=== PATIENT | male | born 1945 | race Caucasian/White ===

== ENCOUNTER → 2018-05-11 | Day surgery (SDC) | payer MEDICARE ==
[~2018-05-11] MED LIST: AMLO5TAB10 PO; ASPI-630 PO; ATEN50TA PO; IV RINGERS,LACTATED 1000ML 1,000 ML IV SCH; MAGN400T22 PO; PANT20TA2 PO; PROPOFOL 40 ML IV ONE; SIMV80TA17 PO; TAMS0.4C2 PO; VANC500V PO
[2018-05-11 07:46] VITALS: BP 135/65
--- NOTE | 2018-05-12 04:51 | HP ---
ADMIT DATE: 05/11/2018 REASON: Rectal bleeding and diarrhea. HISTORY OF PRESENT ILLNESS: A 73-year-old male with past medical history significant for hypertension, hyperlipidemia, history of colonic polyps, anemia, BPH, is seen with diarrhea and bleeding. He has undergone upper endoscopy, which revealed some nonerosive gastritis and is here today for colonoscopy. He had been well maintained on pantoprazole 40 mg daily. Weight and appetite otherwise have been stable. PAST MEDICAL HISTORY: Hypertension, hyperlipidemia, colonic polyps, anemia. ALLERGIES: None. MEDICATIONS: Include atenolol, pantoprazole, simvastatin, and tamsulosin. FAMILY AND SOCIAL HISTORY: Noncontributory. REVIEW OF SYSTEMS: Per records. PHYSICAL EXAMINATION: GENERAL: Reveals a well-nourished, well-developed male who is alert and cooperative, no acute distress. VITAL SIGNS: Temperature 97.3, pulse 51, respiratory rate is 18. HEENT: Normocephalic and atraumatic head. Pupils and extraocular muscles are not tested. Sclerae anicteric. NECK: Supple. LUNGS: Clear. CARDIOVASCULAR: Reveals an S1, S2 without S3, S4 or appreciable murmur. ABDOMEN: Soft abdomen, normal bowel sounds. No appreciable splenomegaly. EXTREMITIES: No cyanosis, clubbing or edema. LABORATORY STUDIES: At the time of admission did include hemoglobin of 11.4. IMPRESSION: Anemia with diarrhea and rectal bleeding, etiology to be determined, history of colonic polyps. Interval exam was recommended. Risks and benefits were previously discussed. The patient is willing to proceed. JOHNNIE CHAWLA MD DR: ALYX/lc JOB#: [id number] / [id number]
== END | disposition home or self-care (01) ==
LOC: ENDOS 06:10
PROVIDERS: ATTEND Internal Medicine Gastroenterology
DX: K57.30 Diverticulosis of large intestine without perforation or abscess without bleeding (principal); K64.0 First degree hemorrhoids; I10 Essential (primary) hypertension; E78.5 Hyperlipidemia, unspecified; Z86.010 Personal history of colon polyps; Z79.899 Other long term (current) drug therapy; N40.0 Benign prostatic hyperplasia without lower urinary tract symptoms; D50.0 Iron deficiency anemia secondary to blood loss (chronic)
CPT/HCPCS: 45378; J2704

== ENCOUNTER → 2019-05-31 | Outpatient (CLI) | payer MEDICARE ==
[2019-05-22 15:00] VITALS: BP 153/75
[~2019-05-31] MED LIST changes: +GADOTERATE 5 MMOL/10ML VIAL. IVP ONE; -IV RINGERS,LACTATED 1000ML 1,000 ML IV SCH; +MAGN400T44 PO; +POTA20TA4 PO; -PROPOFOL 40 ML IV ONE; +SUCR1TAB35 PO
--- NOTE | 2019-05-31 09:14 | KCIC ---
EYE FOR FOREIGN BODY History: Screening protocol for MRI. Evaluate for metallic foreign body. Technique: 2 views of the orbits. Comparison: None. Findings: No radiopaque foreign body. Normal alignment. Impression: 1. No radiopaque foreign body. Electronically signed by: Storm Freedman DO (05/31/2019 9:11 AM) [id number]
--- NOTE | 2019-05-31 10:59 | KCIC ---
EXAM: MRI Abdomen with and without IV contrast INDICATION: Follow-up liver lesion seen on CT. Patient is being evaluated for bloody stools.. TECHNIQUE: Multiplanar, multisequence MRI of the abdomen with and without IV contrast. This includes in and opposed phase imaging, diffusion-weighted imaging and dynamic postcontrast fat saturated T1-weighted imaging using 20 mL of Dotarem IV contrast. IV CONTRAST: Administered. COMPARISON: Contrast-enhanced abdomen pelvis CT 05/21/2019 FINDINGS: LIVER: Marked signal loss diffusely in the liver is consistent with severe diffuse hepatic steatosis. The 2 lesions identified on recent abdominal CT measuring 2.5 cm in the right hepatic lobe and 1.4 cm and the left hepatic lobes show marked T2 bright signal intensity and demonstrate a nodular, peripheral pattern of progressive enhancement with central pedal fill-in on delayed postcontrast phases. A third lesion measuring 1.4 cm slightly medial to the middle hepatic vein in hepatic segment IVb displays similar imaging characteristics. In addition, there are several (6) benign subcentimeter cysts in the liver in both the left and right hepatic lobes, better demonstrated on fluid sensitive T2-weighted sequences on MRI than on the prior CT scan. There is no restricted diffusion.. BILIARY SYSTEM: Gallbladder is unremarkable. Bile ducts are not dilated. PANCREAS: Unremarkable. SPLEEN: Unremarkable. ADRENALS: Unremarkable. KIDNEYS: Superior pole left renal 2.9 cm cyst requires no additional imaging follow-up. Kidneys otherwise are unremarkable. GASTROINTESTINAL: Third portion duodenal diverticulum. No evidence of bowel obstruction, acute inflammation or perforation in the included field of view. MESENTERY/PERITONEUM/RETROPERITONEUM: Unremarkable. VASCULAR: Mild focal ectasia of the celiac axis to 1 cm in diameter is present just beyond its course beneath the diaphragmatic wendi. LYMPH NODES: No adenopathy. OSSEOUS & SOFT TISSUES: A large hiatal hernia remains present containing the majority of the stomach. IMPRESSION: 1. Previously identified hepatic lesions show imaging characteristics typical of benign hepatic hemangiomas. There is a third similar lesion adjacent to the middle hepatic vein in hepatic segment IVb measuring 1.4 cm. No findings suspicious for malignancy on this examination. 2. Severe diffuse hepatic steatosis. 3. Mild ectasia of the celiac axis just beneath the diaphragmatic wendi could reflect median arcuate ligament compression in the appropriate clinical context. Electronically signed by: Red Gudino MD (05/31/2019 10:56 AM) [id number]
== END | disposition home or self-care (01) ==
LOC: KCIC MRI 08:50
PROVIDERS: ATTEND Internal Medicine Gastroenterology
DX: Z01.00 Encounter for examination of eyes and vision without abnormal findings (principal); K76.89 Other specified diseases of liver; K76.0 Fatty (change of) liver, not elsewhere classified; K44.9 Diaphragmatic hernia without obstruction or gangrene; K57.10 Diverticulosis of small intestine without perforation or abscess without bleeding
CPT/HCPCS: 70030; 74183; A9575

== ENCOUNTER 2020-06-09 23:36 | Emergency (ER) | payer MEDICARE ==
[~2020-06-09] VITALS: Ht 177.8 cm; Wt 94.0 kg
[~2020-06-09 23:36] MED LIST changes: +AMLO-186 PO; -AMLO5TAB10 PO; -GADOTERATE 5 MMOL/10ML VIAL. IVP ONE
[2020-06-09 23:38] VITALS: BP 189/91
--- NOTE | 2020-06-10 00:01 | PHYS DOC ---
Past Medical History Past Medical History: GERD, High Cholesterol, Hypertension, Other Additional Past Medical Histor: BPH Past Surgical History: Other Additional Past Surgical Histo: polyps removed, cardiac cath- clean, Smoking Status: Never Smoker Alcohol Use: None Drug Use: None General Adult EDM: Chief Complaint: URINARY RETENTION HPI: HPI: Patient is a 75 year old [f__sex] who presents with [] Urinary retention today after radiation from bladder cancer sees [facility] of [place] next scheduled session is tomorrow Review of Systems: Review of Systems: Fourteen body systems of review of systems have been reviewed. See HPI for pertinent positives and negative responses, other abdi all other systems are negative, non-pertinent or non-contributory Heart Score: Risk Factors: Risk Factors: DM, Current or recent (<one month) smoker, HTN, HLP, family history of CAD, obesity. Risk Scores: Score 0 - 3: 2.5% MACE over next 6 weeks - Discharge Home Score 4 - 6: 20.3% MACE over next 6 weeks - Admit for Clinical Observation Score 7 - 10: 72.7% MACE over next 6 weeks - Early Invasive Strategies Current Medications: Current Medications Medications (Trade) Dose Ordered Sig/Nicole Start Time Stop Time Status Last Admin Dose Admin Acetaminophen/ Hydrocodone Bitart (Lortab 5/325) 1 tab 1X ONCE 06/10/20 00:00 06/10/20 00:01 UNV Allergies: Allergies: Allergies Coded Allergies Type Severity Reaction Last Updated Verified No Known Drug Allergies 05/11/18 No Physical Exam: PE: Constitutional: Well developed, well nourished, no acute distress, non-toxic appearance. HENT: Normocephalic, atraumatic, bilateral external ears normal, oropharynx moist, no oral exudates, nose normal. Eyes: PERRLA, EOMI, conjunctiva normal, no discharge. Neck: Normal range of motion, no tenderness, supple, no stridor. Cardiovascular: Heart rate regular, sinus rhythm, no murmurs rubs or gallops Lungs & Thorax: Bilateral breath sounds clear to auscultation Abdomen: Bowel sounds normal, soft, no tenderness, no masses, no pulsatile masses. Nonsurgical abdomen, no peritoneal signs Skin: Warm, dry, no erythema, no rash. Back: No tenderness, no CVA tenderness. Extremities: No tenderness, no cyanosis, no clubbing, ROM intact, no edema. Neurologic: Alert and oriented X 3, grossly normal motor & sensory function, no focal deficits noted. Psychologic: Affect normal, judgement normal, mood normal. EKG: EKG: [] Radiology/Procedures: Radiology/Procedures: [] Course & Med Decision Making: Course & Med Decision Making Pertinent Labs and Imaging studies reviewed. (See chart for details) [] Dragon Disclaimer: Dragon Disclaimer: This electronic medical record was generated, in whole or in part, using a voice recognition dictation system. Departure Departure Impression: Primary Impression: Acute urinary retention Additional Impression: History of prostate cancer Disposition: HOME / SELF CARE / HOMELESS Condition: IMPROVED Referrals: RAFY WEBBER MD (PCP) Patient Instructions: Urinary Retention, Acute, Male Additional Instructions: As discussed, you had significant relief with Kwon catheter and subsequent drainage of bladder today while in ER. As discussed, please keep Kwon catheter in place until you are seen this upcoming morning by your urology team for previously scheduled radiation treatment. They will be able to provide further direction regarding Kwon catheter use, duration etc. If any concerning signs or symptoms present prior to outpatient follow-up please do not hesitate to come back for repeat evaluation. Take care of you and I wish you the best going forward EVELYNE FRASER DO Jun 10, 2020 00:01
[2020-06-10 00:23] LABS: CLARITY,URINE CLEAR; COLOR,URINE ORANGE
[2020-06-10] MEDS ORDERED: HYDROcodone/APAP 5/325MG 1 TAB TABLET PO ONE (00:30)
[2020-06-10] MEDS ORDERED: ACETAMINOPHEN 500 MG TABLET PO ONE (00:30)
[2020-06-10 00:32] LABS: BACTERIA,URINE 0 /HPF (0-FEW); RBC,URINE 20-40 /HPF (0-2)
== END 2020-06-10 02:40 | disposition home or self-care (01) ==
LOC: ER 23:36
DX: N40.1 Benign prostatic hyperplasia with lower urinary tract symptoms (principal); R33.8 Other retention of urine; K21.9 Gastro-esophageal reflux disease without esophagitis; E78.00 Pure hypercholesterolemia, unspecified; I10 Essential (primary) hypertension; Z85.46 Personal history of malignant neoplasm of prostate
CPT/HCPCS: 51702; 81001; 99284

== ENCOUNTER 2020-07-29 23:25 | Emergency (ER) | payer MEDICARE ==
[~2020-07-29] VITALS: Ht 170.2 cm; Wt 93.1 kg
[2020-07-29 23:30] VITALS: BP 158/112
--- NOTE | 2020-07-30 00:15 | ED.ADGEN ---
Past Medical History Past Medical History: Cancer, GERD, High Cholesterol, Hypertension, Other Additional Past Medical Histor: BPH, Prostate Cancer Past Surgical History: Other Additional Past Surgical Histo: polyps removed, cardiac cath- clean, Smoking Status: Never Smoker Alcohol Use: None Drug Use: None General Adult EDM: Chief Complaint: URINARY RETENTION HPI: HPI: Patient is a 75 year old male coming in for urinary retention and low abdominal pain. Patient states he feels like he is having bladder spasms. Patient is a history of prostate cancer status post surgery and radiation. Patient was at his urology office this morning and had Kwon removed. Was able to void about 50 mL of urine at that time. Patient states he had difficulty and been having only very small amounts of urine output and "trickling". No other complaints. Review of Systems: Review of Systems: All other systems within normal limits except for as noted in the HPI Current Medications: Current Medications Medications (Trade) Dose Ordered Sig/Nicole Start Time Stop Time Status Last Admin Dose Admin Lidocaine HCl (Glydo (Lidocaine) Jelly) 1 bony 1X ONCE 07/30/20 00:30 07/30/20 00:31 Allergies: Allergies: Allergies Coded Allergies Type Severity Reaction Last Updated Verified No Known Drug Allergies 05/11/18 No Physical Exam: PE: Constitutional: Well developed, well nourished, no acute distress, non-toxic appearance. [] HENT: Normocephalic, atraumatic, bilateral external ears normal, nose normal. [] Eyes: PERRLA, conjunctiva normal, no discharge. [] Neck: No rigidity, supple, no stridor. [] Cardiovascular: Regular rate and rhythm, brisk cap refill [] Lungs & Thorax: Non labored symmetric respirations, no tachypnea or respiratory distress [] Abdomen: Soft, nondistended low abdominal tenderness, no masses. Skin: Warm, dry, no erythema, no rash. [] Back: Unremarkable Extremities: No deformities, range of motion grossly intact, no lower extremity edema [] Neurologic: Alert and oriented X 3, no focal deficits noted. [] Psychologic: Affect normal, judgement normal, mood normal. [] EKG: EKG: [] Heart Score: C/O Chest Pain: No Risk Factors: Risk Factors: DM, Current or recent (<one month) smoker, HTN, HLP, family history of CAD, obesity. Risk Scores: Score 0 - 3: 2.5% MACE over next 6 weeks - Discharge Home Score 4 - 6: 20.3% MACE over next 6 weeks - Admit for Clinical Observation Score 7 - 10: 72.7% MACE over next 6 weeks - Early Invasive Strategies Radiology/Procedures: Radiology/Procedures: [] Course & Med Decision Making: Course & Med Decision Making Kwon placed without complication. Patient is follow-up with urologist for further evaluation of urinary tension. Dragon Disclaimer: Dragon Disclaimer: This electronic medical record was generated, in whole or in part, using a voice recognition dictation system. Departure Departure Impression: Primary Impression: Urinary retention with incomplete bladder emptying Disposition: HOME / SELF CARE / HOMELESS Condition: STABLE Referrals: RAFY WEBBER MD (PCP) Patient Instructions: Kwon Catheter Care, Adult MALCOLM WILLIAM MD Jul 30, 2020 00:15
[2020-07-30] MEDS ORDERED: LIDOCAINE 2% JELLY 6ML IN APPLICATOR. MM ONE (00:30)
== END 2020-07-30 00:51 | disposition home or self-care (01) ==
LOC: ER 23:25
DX: N40.1 Benign prostatic hyperplasia with lower urinary tract symptoms (principal); R33.8 Other retention of urine; R10.30 Lower abdominal pain, unspecified; K21.9 Gastro-esophageal reflux disease without esophagitis; E78.00 Pure hypercholesterolemia, unspecified; I10 Essential (primary) hypertension
CPT/HCPCS: 51702; 99284; A4314

== ENCOUNTER 2020-08-11 20:19 | Emergency (ER) | payer MEDICARE ==
[~2020-08-11] VITALS: Ht 170.2 cm; Wt 91.0 kg
[2020-08-11 21:00] LABS: CLARITY,URINE TURBID; COLOR,URINE ORANGE
[2020-08-11 21:05] LABS: WBC,URINE TNTC /HPF (0-4)
[2020-08-11 21:06] LABS: BACTERIA,URINE MANY /HPF (0-FEW)
[2020-08-11] MEDS ORDERED: IV NORMAL SALINE 1000ML BAG 1,000 ML IV ONE (21:15)
[2020-08-11] MEDS ORDERED: HYDROcodone/APAP 5/325MG 1 TAB TABLET PO ONE (22:00)
[2020-08-11 22:15] LABS: BASO % 0 % (0-3); EOS % 0 % (0-3); HEMATOCRIT 34.2 % (39.0-53.0); HEMOGLOBIN 11.9 g/dL (13.0-17.5); LYMPH # 0.6 x10^3/uL (1.0-4.8); LYMPH % 8 % (24-48); MEAN CORPUSCULAR HEMOGLOBIN 32 pg (25-35); MEAN CORPUSCULAR HGB CONC 35 g/dL (31-37); MEAN CORPUSCULAR VOLUME 93 fL (79-100); MONO # 0.5 x10^3/uL (0.0-1.1); MONO % 6 % (0-9); NEUT # 6.2 x10^3/uL (1.8-7.7); NEUT % 85 % (31-73); PLATELET COUNT 206 x10^3/uL (140-400); RED BLOOD COUNT 3.68 x10^6/uL (4.30-5.70); RED CELL DISTRIBUTION WIDTH 13.7 % (11.5-14.5); WHITE BLOOD COUNT 7.2 x10^3/uL (4.0-11.0)
[2020-08-11 22:38] LABS: % LYMPHS 6 % (24-48); % MONOS 6 % (0-10); % SEGS 88 % (35-66); PLT ESTIMATE ADEQUATE (ADEQUATE)
[2020-08-11 23:10] LABS: ALBUMIN 3.4 g/dL (3.4-5.0); ALBUMIN/GLOBULIN RATIO 0.9 (1.0-1.7); CALCIUM 8.8 mg/dL (8.5-10.1); CREATININE 1.6 mg/dL (0.7-1.3); GFR 42.2; TOTAL BILIRUBIN 1.3 mg/dL (0.2-1.0); TOTAL PROTEIN 7.3 g/dL (6.4-8.2)
[2020-08-11 23:12] LABS: POTASSIUM 2.3 mmol/L (3.5-5.1)
[2020-08-11] MEDS ORDERED: POTASSIUM CHLORIDE 10MEQ 100 ML IV SCH (23:45)
[2020-08-11] MEDS ORDERED: POTASSIUM CHLORIDE 20 MEQ TABLET.ER. PO ONE (23:45)
[2020-08-12] MEDS ORDERED: IV NORMAL SALINE 1000ML BAG 1,000 ML IV ONE
[2020-08-12] MEDS: fentaNYL PF VIAL 100 MCG/2 ML VIAL IV PRN ×4 (00:09→02:04)
--- NOTE | 2020-08-12 00:16 | PHYS DOC ---
Past Medical History Past Medical History: Cancer, GERD, High Cholesterol, Hypertension, Other Additional Past Medical Histor: BPH, Prostate Cancer Past Surgical History: Other Additional Past Surgical Histo: polyps removed, cardiac cath- clean, Smoking Status: Never Smoker Alcohol Use: Occasionally Drug Use: None General Adult EDM: Chief Complaint: PAIN ON URINATION HPI: HPI: Patient is a 75 year old male patient with history of hypertension, high cholesterol, prostate cancer, who reports he just finished radiation treatment a couple weeks ago. He states he had a Kwon catheter that was removed 2 weeks ago. He states he has had intermittent dysuria for the last 6 weeks. He states today he was running a fever hence the reason he came to the ED. Denies any nausea, vomiting. He states he took Tylenol prior to coming to the ED. Denies any abdominal pain. He states he is moving to [place] on Monday and was hoping to get antibiotics before he proceeds to his trip. He states he is on [facility] Urologist Dr. Tyler Review of Systems: Review of Systems: Constitutional: Reports a fever Eyes: Denies change in visual acuity. [] HENT: Denies nasal congestion or sore throat. [] Respiratory: Denies cough or shortness of breath. [] Cardiovascular: Denies chest pain or edema. [] GI: Denies abdominal pain, nausea, vomiting, bloody stools or diarrhea. [] : Reports dysuria Musculoskeletal: Denies back pain or joint pain. [] Integument: Denies rash. [] Neurologic: Denies headache, focal weakness or sensory changes. [] Psychiatric: Denies depression or anxiety. [] Heart Score: C/O Chest Pain: N/A Risk Factors: Risk Factors: DM, Current or recent (<one month) smoker, HTN, HLP, family history of CAD, obesity. Risk Scores: Score 0 - 3: 2.5% MACE over next 6 weeks - Discharge Home Score 4 - 6: 20.3% MACE over next 6 weeks - Admit for Clinical Observation Score 7 - 10: 72.7% MACE over next 6 weeks - Early Invasive Strategies Current Medications: Current Medications Medications (Trade) Dose Ordered Sig/Nicole Start Time Stop Time Status Last Admin Dose Admin Acetaminophen/ Hydrocodone Bitart (Lortab 5/325) 2 tab 1X ONCE 08/11/20 22:00 08/11/20 22:01 DC 08/11/20 22:24 2 TAB Fentanyl Citrate (Fentanyl 2ml Vial) 25 mcg PRN Q15MIN PRN 08/11/20 21:15 08/12/20 21:14 Potassium Chloride/Water 100 ml @ 100 mls/hr Q1H 08/11/20 23:45 08/12/20 03:44 08/12/20 00:05 100 MLS/HR Potassium Chloride (Klor-Con) 40 meq 1X ONCE 08/11/20 23:45 08/11/20 23:46 DC 08/12/20 00:05 40 MEQ Sodium Chloride 1,000 ml @ 75 mls/hr 1X ONCE 08/12/20 00:00 08/12/20 13:19 08/12/20 00:06 75 MLS/HR Allergies: Allergies: Allergies Coded Allergies Type Severity Reaction Last Updated Verified No Known Drug Allergies 05/11/18 No Physical Exam: PE: Constitutional: Well developed, well nourished, no acute distress, non-toxic appearance. [] HENT: Normocephalic, atraumatic, bilateral external ears normal, oropharynx moist, no oral exudates, nose normal. [] Eyes: PERRLA, EOMI, conjunctiva normal, no discharge. [] Neck: Normal range of motion, no tenderness, supple, no stridor. [] Cardiovascular:Heart rate regular rhythm, no murmur [] Lungs & Thorax: Bilateral breath sounds clear to auscultation [] Abdomen: Bowel sounds normal, soft, no tenderness, no masses, no pulsatile masses. [] Skin: Warm, dry, no erythema, no rash. [] Back: No tenderness, no CVA tenderness. [] Extremities: No tenderness, no cyanosis, no clubbing, ROM intact, no edema. [] Neurologic: Alert and oriented X 3, normal motor function, normal sensory function, no focal deficits noted. [] Psychologic: Affect normal, judgement normal, mood normal. [] Current Patient Data: Labs: Laboratory Tests Test 08/11/20 20:52 08/11/20 22:00 08/11/20 22:48 Urine Collection Type Unknown Urine Color [place] Urine Clarity Turbid Urine pH (<5.0-8.0) Urine Specific [place] 1.020 (1.000-1.030) Urine Protein mg/dL (NEG-TRACE) Urine Glucose (UA) mg/dL (NEG) Urine Ketones (Stick) mg/dL (NEG) Urine Blood (NEG) Urine Nitrite (NEG) Urine Bilirubin (NEG) Urine Urobilinogen Dipstick mg/dL (0.2 mg/dL) Urine Leukocyte Esterase (NEG) Urine RBC 6-10 /HPF (0-2) Urine WBC Tntc /HPF (0-4) Urine Squamous Epithelial Cells Few /LPF Urine Bacteria Many /HPF (0-FEW) Urine Mucus Slight /LPF White Blood Count 7.2 x10^3/uL (4.0-11.0) Red Blood Count 3.68 x10^6/uL (4.30-5.70) L Hemoglobin 11.9 g/dL (13.0-17.5) L Hematocrit 34.2 % (39.0-53.0) L Mean Corpuscular Volume 93 fL (79-100) Mean Corpuscular Hemoglobin 32 pg (25-35) Mean Corpuscular Hemoglobin Concent 35 g/dL (31-37) Red Cell Distribution Width 13.7 % (11.5-14.5) Platelet Count 206 x10^3/uL (140-400) Neutrophils (%) (Auto) 85 % (31-73) H Lymphocytes (%) (Auto) 8 % (24-48) L Monocytes (%) (Auto) 6 % (0-9) Eosinophils (%) (Auto) 0 % (0-3) Basophils (%) (Auto) 0 % (0-3) Neutrophils # (Auto) 6.2 x10^3/uL (1.8-7.7) Lymphocytes # (Auto) 0.6 x10^3/uL (1.0-4.8) L Monocytes # (Auto) 0.5 x10^3/uL (0.0-1.1) Eosinophils # (Auto) 0.0 x10^3/uL (0.0-0.7) Basophils # (Auto) 0.0 x10^3/uL (0.0-0.2) Segmented Neutrophils % 88 % (35-66) H Lymphocytes % 6 % (24-48) L Monocytes % 6 % (0-10) Platelet Estimate Adequate (ADEQUATE) Lactic Acid Level 0.9 mmol/L (0.4-2.0) Procalcitonin 0.20 ng/mL (0.00-0.10) H Sodium Level 141 mmol/L (136-145) Potassium Level 2.3 mmol/L (3.5-5.1) *L Chloride Level 104 mmol/L (98-107) Carbon Dioxide Level 24 mmol/L (21-32) Anion Gap 13 (6-14) Blood Urea Nitrogen 31 mg/dL (8-26) H Creatinine 1.6 mg/dL (0.7-1.3) H Estimated GFR (Cockcroft-Gault) 42.2 BUN/Creatinine Ratio 19 (6-20) Glucose Level 123 mg/dL (70-99) H Calcium Level 8.8 mg/dL (8.5-10.1) Total Bilirubin 1.3 mg/dL (0.2-1.0) H Aspartate Amino Transferase (AST) 24 U/L (15-37) Alanine Aminotransferase (ALT) 25 U/L (16-63) Alkaline Phosphatase 54 U/L (46-116) Total Protein 7.3 g/dL (6.4-8.2) Albumin 3.4 g/dL (3.4-5.0) Albumin/Globulin Ratio 0.9 (1.0-1.7) L Laboratory Tests 08/11/20 22:00 Laboratory Tests 08/11/20 22:48 Vital Signs: Vital Signs Date Time Temp Pulse Resp B/P (MAP) Pulse Ox O2 Delivery O2 Flow Rate FiO2 08/11/20 23:32 79 146/71 (96) 94 Room Air 08/11/20 22:24 18 08/11/20 21:45 99.1 99.1 EKG: EK interpreted by Dr. Paris sinus rhythm heart rate 75 no STEMI [] Radiology/Procedures: Radiology/Procedures: [] Course & Med Decision Making: Course & Med Decision Making Pertinent Labs and Imaging studies reviewed. (See chart for details) This is a 75-year-old male patient with history of prostate cancer presenting today complaining of dysuria intermittently for 6 weeks and a fever that began today. Patient is afebrile in the ED though he reports taking antipyretic prior to coming to the hospital Urine unable to be read due to color, noted for too many to count WBCs, reports being on Azo CBC with a normal WBC, hemoglobin 11.9 with hematocrit of 34.2. CMP with creatinine of 1.6, BUN of 31, potassium 2.3. Normal EKG. Given oral potassium replacement and IV potassium started. Lactic is normal. Procalcitonin 0.[address] Chow who accepted patient at [facility] Disclaimer: [employer] Disclaimer: This electronic medical record was generated, in whole or in part, using a voice recognition dictation system. Departure Departure Impression: Primary Impression: Hypokalemia Additional Impressions: Dysuria Acute on chronic renal failure Qualified Codes: N17.9 - Acute kidney failure, unspecified; N18.9 - Chronic kidney disease, unspecified UTI (urinary tract infection) Qualified Codes: N39.0 - Urinary tract infection, site not specified Disposition: 02 SHORT TERM HOSPITAL Condition: STABLE Referrals: RAFY WEBBER MD (PCP) MEME JUAREZ APRN Aug 12, 2020 00:16
[2020-08-12 01:30] VITALS: BP 162/66
[2020-08-12] MEDS ORDERED: oxyCODONE/APAP 5/325 1 TAB TABLET PO ONE (01:45)
== END 2020-08-12 02:13 | disposition short-term general hospital (02) ==
LOC: ER 20:19
DX: N39.0 Urinary tract infection, site not specified (principal); I12.9 Hypertensive chronic kidney disease with stage 1 through stage 4 chronic kidney disease, or unspecified chronic kidney disease; N18.9 Chronic kidney disease, unspecified; N17.9 Acute kidney failure, unspecified; E87.6 Hypokalemia; K21.9 Gastro-esophageal reflux disease without esophagitis; E78.00 Pure hypercholesterolemia, unspecified
CPT/HCPCS: 36415; 80053; 81001; 83605; 84145; 85007; 85025; 87040; 87086; 87205; 96361; 96365; 96366; 96375; 96376; 99285; J3010; J3480; J7030